=== PATIENT | male | born 1985 | race Caucasian/White ===

== ENCOUNTER 2018-02-14 18:01 | Emergency (ER) | payer MEDICAID ==
[2018-02-14 18:30] VITALS: BP 135/83
== END 2018-02-14 20:30 | disposition left against medical advice (07) ==
LOC: ER 18:01
DX: S80.869A Insect bite (nonvenomous), unspecified lower leg, initial encounter (principal); Z53.21 Procedure and treatment not carried out due to patient leaving prior to being seen by health care provider; W57.XXXA Bitten or stung by nonvenomous insect and other nonvenomous arthropods, initial encounter; Y93.89 Activity, other specified; Y99.8 Other external cause status; Y92.89 Other specified places as the place of occurrence of the external cause

== ENCOUNTER 2020-12-25 01:15 | Emergency (ER) | payer MEDICAID, OTHER ==
[~2020-12-25] VITALS: Ht 182.9 cm; Wt 72.6 kg
[2020-12-25 02:08] VITALS: BP 112/86
[2020-12-25 02:27] LABS: Amphetamine Screen, Urine POSITIVE (NEGATIVE); Barbiturate Scree,Urine NEGATIVE (NEGATIVE); Benzodiazephine Screen, Urine NEGATIVE (NEGATIVE); Cocaine Screen, Urine NEGATIVE (NEGATIVE); Opiate Scree,Urine POSITIVE (NEGATIVE)
[2020-12-25 02:34] LABS: Cannabinoid Screen, Urine POSITIVE (NEGATIVE); Phencyclidine Screen, Urine NEGATIVE (NEGATIVE)
== END 2020-12-25 03:19 | disposition left against medical advice (07) ==
LOC: ER 01:16
DX: M79.602 Pain in left arm (principal); Z53.21 Procedure and treatment not carried out due to patient leaving prior to being seen by health care provider
CPT/HCPCS: 73090; 80307

== ENCOUNTER 2022-03-09 01:14 | Emergency (ER) | payer SELFPAY ==
[~2022-03-09] VITALS: Ht 188 cm; Wt 63.6 kg
[2022-03-09 01:40] VITALS: BP 124/88
== END 2022-03-09 04:00 | disposition left against medical advice (07) ==
LOC: ER 01:15
DX: H92.01 Otalgia, right ear (principal); Z53.21 Procedure and treatment not carried out due to patient leaving prior to being seen by health care provider